=== PATIENT | female | born 1955 | race Caucasian/White ===

== ENCOUNTER 2017-02-02 11:29 | Day surgery (SDC) | payer OTHER ==
[2017-02-01 10:28] VITALS: BMI 20.5
[~2017-02-02 11:29] MED LIST: LACTATED RINGERS 1,000 ML IV SCH; LIDOCAINE 1% 20 ML VIAL (10MG/ML) FOR IV START INTRADERMA PRN
[2017-02-02 11:45] VITALS: TEMP 96.3
[2017-02-02] MEDS ORDERED: PROPOFOL 10 MG/ML 20 ML VIAL IV ONE (11:57)
[2017-02-02] MEDS ORDERED: MIDAZOLAM 2 MG/2 ML VIAL ONE (11:57)
[2017-02-02] MEDS ORDERED: LIDOCAINE 1% INJ 10MG/ML (20 ML MDV) ONE (11:57)
--- NOTE | 2017-02-02 12:31 | P.PCN ---
Date of Procedure: 02/02/17 Procedure(s) Performed: BRIEF HISTORY: Patient is a 61-year-old pleasant white female, scheduled for an elective colonoscopy as a part of evaluation of right lower quadrant abdominal pain of 2 months duration. Patient was admitted to the hospital with right lower quadrant abdominal pain of [address] of the abdomen done showed multiple lesions in the liver suggestive of metastasis and of fullness in the cecum suspicious for a mass. She was discharged home and is scheduled for an outpatient colonoscopy today. PROCEDURE PERFORMED: Attempted Colonoscopy with biopsy. PREOPERATIVE DIAGNOSIS: Right lower quadrant abdominal pain and abnormal CAT scan of the abdomen done 2 days ago showing multiple lesions in the liver suspicious for metastasis and lesion in the cecum. IV sedation per Anesthesia. PROCEDURE: After informed consent was obtained, the patient, was brought into the endoscopy unit. IV sedation was administered by Anesthesia under continuous monitoring. Digital rectal examination was normal. Initially the Olympus CF- 160 flexible video colonoscope was then inserted in the rectum, gradually advanced into the sigmoid colon and the scope could not be advanced any further. The scope was removed and a pediatric colonoscope was then introduced into the rectum and gently was able to advance the scope into the distal sigmoid and immediately there was a circumferential ulcerated mass with almost complete obstruction noted. The distal margin of the mass was located at 25 cm from the anal verge. Despite multiple times with abdominal pressure and changing patient's position, I was not able to advance the scope any further. At this time I decided to proceed with multiple biopsies were done from the mass. The rectum appeared normal. Retroflexion was performed in the rectum and no lesions were seen. The patient tolerated the procedure well. IMPRESSION: Near Obstructing circumferential distal sigmoid colon mass at 25 cm from the anal verge status post multiple biopsies Scope could not be advanced beyond the sigmoid colon mass. RECOMMENDATIONS: Findings of this examination were discussed with the patient as well as a family. At this time will await the biopsy results. Fine into this examination were already discussed with and the patient will be scheduled to see surgery on an outpatient basis.
[2017-02-02 12:43] VITALS: BP 116/72; PULSE 94; RESP 15
== END 2017-02-02 13:13 | disposition home or self-care (01) ==
LOC: ORWHC2ENDO 11:29
PROVIDERS: ATTEND Internal Medicine Gastroenterology
DX: C18.7 Malignant neoplasm of sigmoid colon (principal); K76.9 Liver disease, unspecified; Z79.891 Long term (current) use of opiate analgesic; Z88.6 Allergy status to analgesic agent
CPT/HCPCS: 88305; 45331; J2250; J2001; J2704; 45380

== ENCOUNTER 2017-03-01 15:26 | Emergency (ER) | payer OTHER ==
[2017-03-01 15:36] VITALS: RESP 18
--- NOTE | 2017-03-01 16:28 | ED ---
GI Bleed HPI - General Chief complaint: GI Bleed Stated complaint: GI Bleed Time Seen by Provider: 03/01/17 15:36 Source: patient, EMS, RN notes reviewed Mode of arrival: EMS Limitations: no limitations - History of Present Illness Initial comments: This is a 61-year-old female who is about one week post colostomy for metastatic colon cancer who states she had a rather large bowel movement of dark red blood this morning. She states she had rectal pressure in the past the blood. She denies any overt lightheadedness or dizziness she does feel tired she denies any fevers chills or sweats. No other symptoms report she states she has no abdominal pain. She states her colostomy appears be functioning with no change in the color of the stool in the colostomy bag. MD complaint: gross hematochezia - Related Data Home Medications Medication Instructions Recorded Confirmed Menthol [Biofreeze] 1 applic TOPICAL TID PRN 03/01/17 03/01/17 Omeprazole [PriLOSEC] 20 mg PO DAILY 03/01/17 03/01/17 Previous Rx's Medication Instructions Recorded PARoxetine HCL [Paxil] 10 mg PO DAILY #30 tab 02/16/17 Cefuroxime Axetil [Ceftin] 500 mg PO BID #20 tab 02/22/17 HYDROcodone/APAP 7.5-325MG [[place] 1 tab PO Q4H PRN #30 tab 02/22/17 7.5-325] Metoprolol Tartrate [Lopressor] 25 mg PO BID #60 tab 02/22/17 metroNIDAZOLE [Flagyl] 500 mg PO Q8HR #30 tab 02/22/17 Allergies Allergy/AdvReac Type Severity Reaction Status Date / Time aspirin Allergy Rash/Hives Verified 03/01/17 16:02 Review of Systems ROS Statement: Those systems with pertinent positive or pertinent negative responses have been documented in the HPI. ROS Other: All systems not noted in ROS Statement are negative. Past Medical History Past Medical History: Cancer, Osteoarthritis (OA), Skin Disorder Additional Past Medical History / Comment(s): tumor near colon, hemorrhoids, Colon cancer with mets to the bone, colostomy 02/25/17 History of Any Multi-Drug Resistant Organisms: None Reported Past Surgical History: Bowel Resection Additional Past Surgical History / Comment(s): COLONOSCOPY, colostomy 02/25/17 Past Anesthesia/Blood Transfusion Reactions: Family History of Problems w/ Anesthesia Additional Past Anesthesia/Blood Transfusion Reaction / Comment(s): mom had some kind of problem w/anesthesia-she wore a bracelet, not sure what it was-she thought was some kind of allergy Past Psychological History: No Psychological Hx Reported Smoking Status: Never smoker Past Alcohol Use History: None Reported Past Drug Use History: None Reported - Past Family History Father Family Medical History: Myocardial Infarction ([place]) Mother Family Medical History: Cancer Additional Family Medical History / Comment(s): BREAST CANCER General Exam - General Exam Comments Initial Comments: This is a well-developed well-nourished awake alert oriented x 3 female Limitations: no limitations General appearance: alert, in no apparent distress Head exam: Present: atraumatic, normocephalic, normal inspection Eye exam: Present: normal appearance, PERRL, EOMI. Absent: scleral icterus, conjunctival injection, periorbital swelling ENT exam: Present: normal exam, mucous membranes moist Neck exam: Present: normal inspection. Absent: tenderness, meningismus, lymphadenopathy Respiratory exam: Present: normal lung sounds bilaterally. Absent: respiratory distress, wheezes, rales, rhonchi, stridor Cardiovascular Exam: Present: regular rate, normal rhythm, normal heart sounds. Absent: systolic murmur, diastolic murmur, rubs, gallop, clicks GI/Abdominal exam: Present: soft, normal bowel sounds, other (The colostomy does appear to be functioning there is light brown stool). Absent: distended, tenderness, guarding, rebound, rigid Rectal exam: Present: normal inspection, other (No gross blood the test was heme positive) Extremities exam: Present: normal inspection, full ROM, normal capillary refill. Absent: tenderness, pedal edema, joint swelling, calf tenderness Back exam: Present: normal inspection Neurological exam: Present: alert, oriented X3, CN II-XII intact Psychiatric exam: Present: normal affect, normal mood Skin exam: Present: warm, dry, intact, normal color. Absent: rash Course Vital Signs 03/01/17 03/01/17 03/01/17 15:31 16:43 17:00 Temperature 97.7 F Pulse Rate 82 85 88 Respiratory 18 18 18 Rate Blood Pressure 129/62 120/55 124/60 O2 Sat by Pulse 98 99 100 Oximetry Medical Decision Making - Medical Decision Making I did discuss findings with the patient I also did discuss the findings with Dr. Missael Thompson. This is expected post operative. Patient be discharged her hemoglobin is much improved from the previous levels. She'll be discharged back to the long term. She is a follow-up as planned - Lab Data Result diagrams: 03/01/17 15:56 03/01/17 15:56 Lab Results 03/01/17 03/01/17 03/01/17 Range/Units 15:56 15:56 15:56 WBC 16.4 H (3.8-10.6) k/uL RBC 3.99 (3.80-5.40) m/uL Hgb 10.6 L (11.4-16.0) gm/dL Hct 35.6 (34.0-46.0) % MCV 89.2 (80.0-100.0) fL MCH 26.6 (25.0-35.0) pg MCHC 29.8 L (31.0-37.0) g/dL RDW 13.9 (11.5-15.5) % Plt Count 369 D (150-450) k/uL Neutrophils % 88 % Lymphocytes % 4 % Monocytes % 5 % Eosinophils % 1 % Basophils % 0 % Neutrophils # 14.5 H (1.3-7.7) k/uL Lymphocytes # 0.7 L (1.0-4.8) k/uL Monocytes # 0.8 (0-1.0) k/uL Eosinophils # 0.2 (0-0.7) k/uL Basophils # 0.0 (0-0.2) k/uL Hypochromasia Moderate Sodium 134 L (137-145) mmol/L Potassium 4.6 (3.5-5.1) mmol/L Chloride 101 (98-107) mmol/L Carbon Dioxide 26 (22-30) mmol/L Anion Gap 7 mmol/L BUN 7 (7-17) mg/dL Creatinine 0.44 L (0.52-1.04) mg/dL Est GFR (MDRD) Af Amer >60 (>60 ml/min/1.73 sqM) Est GFR (MDRD) Non-Af >60 (>60 ml/min/1.73 sqM) Glucose 96 (74-99) mg/dL Calcium 8.4 (8.4-10.2) mg/dL Magnesium 2.2 (1.6-2.3) mg/dL Total Bilirubin 0.7 (0.2-1.3) mg/dL AST 46 H (14-36) U/L ALT 45 (9-52) U/L Alkaline Phosphatase 467 H (38-126) U/L Total Protein 6.5 (6.3-8.2) g/dL Albumin 3.2 L (3.5-5.0) g/dL Amylase 36 (30-110) U/L Lipase 253 (23-300) U/L Stool Occult Blood (Negative) Blood Type O Positive Blood Type Recheck No Antibody Screen NEGATIVE Spec Expiration Date 03/04/2017 - 235503/01/17 Range/Units 16:28 WBC (3.8-10.6) k/uL RBC (3.80-5.40) m/uL Hgb (11.4-16.0) gm/dL Hct (34.0-46.0) % MCV (80.0-100.0) fL MCH (25.0-35.0) pg MCHC (31.0-37.0) g/dL RDW (11.5-15.5) % Plt Count (150-450) k/uL Neutrophils % % Lymphocytes % % Monocytes % % Eosinophils % % Basophils % % Neutrophils # (1.3-7.7) k/uL Lymphocytes # (1.0-4.8) k/uL Monocytes # (0-1.0) k/uL Eosinophils # (0-0.7) k/uL Basophils # (0-0.2) k/uL Hypochromasia Sodium (137-145) mmol/L Potassium (3.5-5.1) mmol/L Chloride (98-107) mmol/L Carbon Dioxide (22-30) mmol/L Anion Gap mmol/L BUN (7-17) mg/dL Creatinine (0.52-1.04) mg/dL Est GFR (MDRD) Af Amer (>60 ml/min/1.73 sqM) Est GFR (MDRD) Non-Af (>60 ml/min/1.73 sqM) Glucose (74-99) mg/dL Calcium (8.4-10.2) mg/dL Magnesium (1.6-2.3) mg/dL Total Bilirubin (0.2-1.3) mg/dL AST (14-36) U/L ALT (9-52) U/L Alkaline Phosphatase (38-126) U/L Total Protein (6.3-8.2) g/dL Albumin (3.5-5.0) g/dL Amylase (30-110) U/L Lipase (23-300) U/L Stool Occult Blood Positive H (Negative) Blood Type Blood Type Recheck Antibody Screen Spec Expiration Date - Radiology Data Radiology results: report reviewed (I did review the imaging and reports.), image reviewed Disposition Clinical Impression: Post-op bleeding, Metastatic colon cancer in female Disposition: HOME SELF-CARE Condition: Good Referrals: None,Stated [Primary Care Provider] - 1-2 days
[2017-03-01 16:36] LABS: Basophils % (A) 0 %; CH 27.5; CHCM 30.9; Eosinophils # (A) 0.2 k/uL (0-0.7); Eosinophils % (A) 1 %; HCT 35.6 % (34.0-46.0); HDW 3.12; HGB 10.6 gm/dL (11.4-16.0); Hypochromasia Moderate; Luc # (Auto) 0.15; Luc % (Auto) 1; Lymphocytes # (A) 0.7 k/uL (1.0-4.8); Lymphocytes % (A) 4 %; MCH 26.6 pg (25.0-35.0); MCHC 29.8 g/dL (31.0-37.0); MCV 89.2 fL (80.0-100.0); Mean Platelet Volume 7.6; Monocytes # (A) 0.8 k/uL (0-1.0); Monocytes % (A) 5 %; Neutrophils # (A) 14.5 k/uL (1.3-7.7); Neutrophils % (A) 88 %; RBC 3.99 m/uL (3.80-5.40); RDW 13.9 % (11.5-15.5); WBC 16.4 k/uL (3.8-10.6); WBC (Perox) 15.91
[2017-03-01 16:47] LABS: ALT 45 U/L (9-52); AST 46 U/L (14-36); Alkaline Phosphatase 467 U/L (38-126); Amylase 36 U/L (30-110); Anion Gap 7 mmol/L; Blood Urea Nitrogen 7 mg/dL (7-17); Calcium 8.4 mg/dL (8.4-10.2); Carbon Dioxide 26 mmol/L (22-30); Chloride 101 mmol/L (98-107); Glucose 96 mg/dL (74-99); Magnesium 2.2 mg/dL (1.6-2.3); Non-African American GFR(MDRD) >60 (>60 ml/min/1.73 sqM); Potassium 4.6 mmol/L (3.5-5.1); Sodium 134 mmol/L (137-145); Total Bilirubin 0.7 mg/dL (0.2-1.3); Total Protein 6.5 g/dL (6.3-8.2)
--- NOTE | 2017-03-01 17:06 | XR ---
EXAMINATION TYPE: XR abdomen acute w cxr DATE OF EXAM: 03/01/2017 COMPARISON: 02/19/2017 HISTORY: Colon carcinoma TECHNIQUE: Single view of the chest and 2 views of the abdomen are submitted. FINDINGS: Single view of the chest fails demonstrate evidence for acute pulmonary disease. Multiple pulmonary nodules are seen bilaterally consistent with metastatic disease. There is no evidence for pneumoperitoneum. The bowel gas pattern is unremarkable as there is air throughout nondilated small and large bowel. No sizeable air fluid levels.No mass effects are seen. Ostomy is noted in place. Suspect right-sided nephrolithiasis. Metastatic disease to the osseous structures of the pelvis. IMPRESSION: 1. Nonspecific nonobstructive bowel gas pattern. 2. Findings consistent with metastatic disease.
[2017-03-01 17:15] VITALS: BP 124/60
--- NOTE | 2017-03-01 18:22 | ED ---
Medical Decision Making - Lab Data Result diagrams: 03/01/17 15:56 03/01/17 15:56 Lab Results 03/01/17 03/01/17 03/01/17 Range/Units 15:56 15:56 15:56 WBC 16.4 H (3.8-10.6) k/uL RBC 3.99 (3.80-5.40) m/uL Hgb 10.6 L (11.4-16.0) gm/dL Hct 35.6 (34.0-46.0) % MCV 89.2 (80.0-100.0) fL MCH 26.6 (25.0-35.0) pg MCHC 29.8 L (31.0-37.0) g/dL RDW 13.9 (11.5-15.5) % Plt Count 369 D (150-450) k/uL Neutrophils % 88 % Lymphocytes % 4 % Monocytes % 5 % Eosinophils % 1 % Basophils % 0 % Neutrophils # 14.5 H (1.3-7.7) k/uL Lymphocytes # 0.7 L (1.0-4.8) k/uL Monocytes # 0.8 (0-1.0) k/uL Eosinophils # 0.2 (0-0.7) k/uL Basophils # 0.0 (0-0.2) k/uL Hypochromasia Moderate Sodium 134 L (137-145) mmol/L Potassium 4.6 (3.5-5.1) mmol/L Chloride 101 (98-107) mmol/L Carbon Dioxide 26 (22-30) mmol/L Anion Gap 7 mmol/L BUN 7 (7-17) mg/dL Creatinine 0.44 L (0.52-1.04) mg/dL Est GFR (MDRD) Af Amer >60 (>60 ml/min/1.73 sqM) Est GFR (MDRD) Non-Af >60 (>60 ml/min/1.73 sqM) Glucose 96 (74-99) mg/dL Calcium 8.4 (8.4-10.2) mg/dL Magnesium 2.2 (1.6-2.3) mg/dL Total Bilirubin 0.7 (0.2-1.3) mg/dL AST 46 H (14-36) U/L ALT 45 (9-52) U/L Alkaline Phosphatase 467 H (38-126) U/L Total Protein 6.5 (6.3-8.2) g/dL Albumin 3.2 L (3.5-5.0) g/dL Amylase 36 (30-110) U/L Lipase 253 (23-300) U/L Stool Occult Blood (Negative) Blood Type O Positive Blood Type Recheck No Antibody Screen NEGATIVE Spec Expiration Date 03/04/2017235503/01/17 Range/Units 16:28 WBC (3.8-10.6) k/uL RBC (3.80-5.40) m/uL Hgb (11.4-16.0) gm/dL Hct (34.0-46.0) % MCV (80.0-100.0) fL MCH (25.0-35.0) pg MCHC (31.0-37.0) g/dL RDW (11.5-15.5) % Plt Count (150-450) k/uL Neutrophils % % Lymphocytes % % Monocytes % % Eosinophils % % Basophils % % Neutrophils # (1.3-7.7) k/uL Lymphocytes # (1.0-4.8) k/uL Monocytes # (0-1.0) k/uL Eosinophils # (0-0.7) k/uL Basophils # (0-0.2) k/uL Hypochromasia Sodium (137-145) mmol/L Potassium (3.5-5.1) mmol/L Chloride (98-107) mmol/L Carbon Dioxide (22-30) mmol/L Anion Gap mmol/L BUN (7-17) mg/dL Creatinine (0.52-1.04) mg/dL Est GFR (MDRD) Af Amer (>60 ml/min/1.73 sqM) Est GFR (MDRD) Non-Af (>60 ml/min/1.73 sqM) Glucose (74-99) mg/dL Calcium (8.4-10.2) mg/dL Magnesium (1.6-2.3) mg/dL Total Bilirubin (0.2-1.3) mg/dL AST (14-36) U/L ALT (9-52) U/L Alkaline Phosphatase (38-126) U/L Total Protein (6.3-8.2) g/dL Albumin (3.5-5.0) g/dL Amylase (30-110) U/L Lipase (23-300) U/L Stool Occult Blood Positive H (Negative) Blood Type Blood Type Recheck Antibody Screen Spec Expiration Date Disposition Clinical Impression: Post-op bleeding, Metastatic colon cancer in female Disposition: HOME SELF-CARE Condition: Good Instructions: Gastrointestinal Bleeding (ED) Referrals: None,Stated [Primary Care Provider] - 1-2 days
[2017-03-01 18:28] VITALS: TEMP 98
[2017-03-01 19:01] VITALS: PULSE 87
== END 2017-03-01 19:01 | disposition home or self-care (01) ==
LOC: EC 15:26
DX: K91.840 Postprocedural hemorrhage of a digestive system organ or structure following a digestive system procedure (principal); C18.9 Malignant neoplasm of colon, unspecified; Z79.899 Other long term (current) drug therapy; Z88.6 Allergy status to analgesic agent
CPT/HCPCS: 36415; 74022; 80053; 82150; 82272; 83690; 83735; 85025; 86850; 86900; 86901; 99285

== ENCOUNTER → 2017-06-09 | Outpatient (CLI) | payer OTHER ==
[2017-06-09 13:01] LABS: Blood Urea Nitrogen 9 mg/dL (7-17)
--- NOTE | 2017-06-09 15:55 | CT ---
EXAMINATION TYPE: CT ChestAbdPelvis w con DATE OF EXAM: 06/09/2017 COMPARISON: CT abdomen pelvis 01/30/2017, chest x-ray 02/19/2017 HISTORY: Colon cancer. CT DLP: 1246 mGycm Automated exposure control for dose reduction was used. CONTRAST: CT scan of the chest, abdomen and pelvis is performed with Oral Contrast and with IV Contrast, patien t injected with 100 mL of Omnipaque 300. FINDINGS: LUNGS: Too numerous to count lung nodules are scattered throughout both lungs, largest on the left is approximately 14 mm and on the right approximately 9 mm in the upper lobes, multiple nodules are cav itary. No pleural or pericardial effusion. Port-A-Cath is present with the port in the right pectoral region, catheter is coursing into the level of the cavoatrial junction. MEDIASTINUM: There are no greater than 1 cm hilar or mediastinal lymph nodes. No pericardial effusi on is seen. AORTA: No significant abnormality is seen. LIVER/GB: Multiple low attenuation foci are scattered within the liver, confluent low-attenuation pre sent towards the dome, gallbladder is somewhat contracted PANCREAS: No significant abnormality is seen. SPLEEN: No significant abnormality is seen. ADRENALS: No significant abnormality is seen. KIDNEYS: No significant abnormality is seen. REPRODUCTIVE ORGANS: No gross abnormality seen. BOWEL: Colonic wall thickening is nonspecific. FREE AIR: No Free Air visible. ASCITES: None seen. There is diffuse anasarca, patient is cachectic RETROPERITONEAL ADENOPATHY: No retroperitoneal adenopathy is seen. LYMPH NODES: Lymph nodes noted in the groins are subcentimeter in size. URINARY BLADDER: Somewhat thickened wall as noted. PELVIC ADENOPATHY: None visualized. OSSEOUS STRUCTURES: Multiple lytic lesions are present, there are areas of sclerosis and hypertrophi c bone formation in the pelvis with probable acetabular fracture on the left, ramus fracture on the r ight without displacement, possible ramus fracture on the left and oncologic fractures in the sacrum, some sclerotic foci also noted within the visualized lumbar spine. There is an air collection adjacent to what may been a prior PEG tube site and anterior abdomen, the collection is superficial to the anterior abdominal wall and measures 2 cm in greatest dimension and shows some air density as well as some minimal soft tissue density, small subcutaneous abscess diffic ult to exclude. IMPRESSION: Liver and lung metastasis again noted. Findings at the PEG site as described. Extensive sclerotic appearance within the pelvis has progressed and likely due to periosteal reaction, findings suspicious for pathologic or posttreatment fractures in the pelvis. Liver lesions appears similar, n o prior chest CT for direct comparison of lung nodules.
== END | disposition home or self-care (01) ==
LOC: RADPROMAIN 12:17
PROVIDERS: ATTEND Internal Medicine Hematology & Oncology
DX: C78.7 Secondary malignant neoplasm of liver and intrahepatic bile duct (principal); C78.00 Secondary malignant neoplasm of unspecified lung; C18.7 Malignant neoplasm of sigmoid colon; C79.51 Secondary malignant neoplasm of bone; Z88.6 Allergy status to analgesic agent
CPT/HCPCS: 82565; 84520; 71260; 74177; Q9967; J1642

== ENCOUNTER → 2017-09-07 | Outpatient (CLI) | payer OTHER ==
[2017-09-07 11:37] LABS: Blood Urea Nitrogen 8 mg/dL (7-17)
--- NOTE | 2017-09-07 15:40 | NM ---
EXAMINATION TYPE: NM bone scan whole body DATE OF EXAM: 09/07/2017 COMPARISON: CT chest abdomen and pelvis September 07, 2017. Older CT January 30, 2017. Outside right knee x- ray August 08, 2017. HISTORY: Right knee pain for one year. Colon cancer diagnosed 7 months ago. Bone metastases to hip. Delayed whole-body scanning was performed following the injection of 24.9 mCi Tc 99m MDP. Images acq uired 3.5 hours post injection. FINDINGS: There is marked radiotracer uptake involving the sacrum extending into the right iliac bone with diff use involvement through bilateral superior and inferior pelvic rami, there is radiotracer uptake invo lving the left L3 vertebra. There is marked radiotracer uptake involving the proximal tibial metaphys is. All levels correspond to abnormal irregular expansile predominantly sclerotic bony lesions on CT and plain films. IMPRESSION: As above, findings would be presumed related to metastatic disease given history of primary colonic c ancer. Other neoplastic etiologies not excluded.
--- NOTE | 2017-09-08 11:03 | CT ---
EXAMINATION TYPE: CT ChestAbdPelvis w con DATE OF EXAM: 09/07/2017 COMPARISON: CT chest abdomen and pelvis June 09, 2017. Same day nuclear medicine bone scan. Older CT abdomen pelvis January 30, 2017. HISTORY: History of metastatic colon cancer progress study. Ongoing radiation treatment to left hip. Completed chemotherapy August 16, 2017. CT DLP: 1019 mGycm. Automated Exposure Control for Dose Reduction was Utilized. CONTRAST: CT scan of the thorax, abdomen and pelvis is performed with oral and with IV Contrast, patient inject ed with 100 mL of Isovue 300. FINDINGS: LUNGS: Multiple metastatic lesions throughout the bilateral lungs are redemonstrated most prominent i n the upper lungs. For reference lateral left apical metastatic lesion measures 13 mm on long axis ax ial image 8 and measured 11 mm on prior study axial image 11 fairly stable. Largest peripheral lesion right upper lobe measures 13 mm long axis axial image 27 similar measurements prior study axial imag e 28. No definitive new or changing lesions are present. 2 right basilar lesions for reference axial image 46 are stable. No pleural effusion or pneumothorax is noted. Tracheobronchial tree is patent. MEDIASTINUM: There are no greater than 1 cm hilar or mediastinal lymph nodes. No cardiomegaly or pe ricardial effusion is seen. There is mild to moderate stable right atrial dilatation. OTHER: There is stable right internal jugular Mediport catheter. LIVER/GB: Heterogeneous hypodense lesions throughout the liver most prominent in the right hepatic do me are redemonstrated. Anterior right hepatic dome lesion measures 4.8 cm long axis axial image 10 an d measures 3.5 cm on prior study increased in size now abutting more posterior lesion. Other lesions are stable or diminished in size. For reference 6 segment 7 lesion measures 2.5 cm long axis axial im age 50 and measure 2.6 cm prior study. For reference lateral lesion measures 4.4 cm long axis axial i mage 52 versus 5.2 cm prior study image 54. There is diminished in size inferior right lesion measuri ng 1.2 cm axial image 61 versus 1.6 cm on prior. Mild periportal edema remains present. No definitive new lesions are seen. No ductal dilatation is noted. There is overall improvement from older CT January 30, 2017 PANCREAS: No significant abnormality is seen. SPLEEN: Spleen size is stable and mildly enlarged at 13.8 cm long axis coronal image 38. ADRENALS: No significant abnormality is seen. KIDNEYS: Bladder is poorly distended and thus suboptimally evaluated. New moderate concentric wall th ickening is noted. A cystitis cannot be excluded, correlate clinically. BOWEL: There is contrast and debris-filled stomach. There is no suspicious small or large bowel dilat ation. There is persistent suspicious mass or neoplasm in the cecum near axial image 92 which is less prominent than the original study. There is new moderate wall thickening in the sigmoid colon. Canno t exclude colitis at this level. Clinical correlation advised. Anterior wall colostomy redemonstrated . GENITAL ORGANS: No gross abnormality seen. LYMPH NODES: No greater than 1cm abdominal or pelvic lymph nodes are appreciated. OSSEOUS STRUCTURES: There is persistent sclerotic focus involving left L3 vertebra anteriorly. There is persistent expansile mixed predominantly sclerotic osseous lesion presumed metastatic involving bi lateral superior and inferior pelvic rami extending into left acetabulum. Similar lesion involves sunil ority of sacrum sparing S1 level extending into right iliac bone. No significant change from most rec ent CT. No definitive new lesions are seen. Findings correlate with same day bone scan. OTHER: No significant additional abnormality is seen. IMPRESSION: 1. Stable osseous and pulmonary metastatic disease. Overall mixed response in liver from most recent CT. No new suspicious masses or adenopathy noted. Possible sigmoid colitis, correlate clinically. Possible new cystitis, correlate clinically. Adverse reaction to chemotherapy on differential.
== END | disposition home or self-care (01) ==
LOC: RADNMMAIN 10:55
PROVIDERS: ATTEND Internal Medicine Hematology & Oncology
DX: C79.51 Secondary malignant neoplasm of bone (principal); C78.01 Secondary malignant neoplasm of right lung; C78.02 Secondary malignant neoplasm of left lung; C18.7 Malignant neoplasm of sigmoid colon; Z88.6 Allergy status to analgesic agent
CPT/HCPCS: 82565; 84520; 71260; 74177; 78306; A9503; J1642; Q9967

== ENCOUNTER → 2017-11-08 | Outpatient (CLI) | payer OTHER ==
[2017-11-08 12:10] LABS: Blood Urea Nitrogen 13 mg/dL (7-17)
--- NOTE | 2017-11-08 14:11 | CT ---
EXAMINATION TYPE: CT ChestAbdPelvis w con DATE OF EXAM: 11/08/2017 COMPARISON: 09/07/2017 and 06/09/2017 HISTORY: 62-year-old female Colon CA with mets TECHNIQUE: Contiguous axial scanning of the chest, abdomen, and pelvis performed with IV Contrast, pa tient injected with 100 mL of Isovue 300. Delayed images through the kidneys were obtained. Coronal/s agittal reconstructions performed. CT DLP: 484.8 mGycm Automated exposure control for dose reduction was used. FINDINGS: Chest: Right anterior chest wall injection port with catheter tip at the lower SVC. Heart normal size without pericardial effusion. Aorta normal caliber with conventional arch vessel branching anatomy. No thoracic lymphadenopathy by CT size criteria. Innumerable bilateral pulmonary nodules are redemonstrated. Some again show cavitary changes. Many ar e stable. Others show increasing soft tissue bulk, for example, medial left upper lobe axial image 10 measuring 1.1 cm versus 8 mm, previously and in the left apex measuring 1.5 x 1.4 cm versus 1.3 x 0. 9 cm, previously. 8 mm superior segment left lower lobe versus 6 mm, previously. Numerous tiny 5 mm and smaller new pulmonary nodules are now present. No consolidation or pleural effusion. ABDOMEN: Multiple hepatic metastases are redemonstrated and show increasing size, for example, right liver lob e axial image 61 measures 2.7 cm versus 1.2 cm, previously. Right hepatic dome measures 5.7 cm versus 4.1 cm, previously. Peripheral right hepatic dome measures 5.2 cm versus 4.7 cm, previously. Posteri or right hepatic dome measures 4.6 cm versus 2.5 cm, previously. Segment 6 right liver lobe measures 3.2 cm versus 3.1 cm, previously. Portal venous system is patent. No biliary ductal dilatation. Gallbladder, adrenal glands, left kidney appear within normal limits. Spleen mildly enlarged at 14.4 cm, coronal image 44. Pancreas is atrophic. Subcentimeter hypodensity upper to mid right kidney too small for accurate CT catheterization, probab le cyst. No dilated small bowel, free fluid, or free air. There is a diverting mid-transverse colostomy. Circumferential soft tissue thickening in the region o f the lower ascending colon appears increased, coronal image 28 and axial image 90. No abnormal fluid collection the pelvis. No obvious pelvic lymphadenopathy. Mild diffuse anasarca-type change. No obvious intra-abdominal lymphadenopathy though assessment limit ed due to anasarca type changes. Pelvis: Mild circumferential bladder wall thickening has improved from prior. No abnormal fluid collection th e pelvis or pelvic lymphadenopathy is identified. Uterus is present. Pelvic phleboliths. Left ovary i s visualized. Bones: Extensive abnormal sclerosis and hypertrophic changes of the pelvis and sacrum. There is persistent l ytic destruction of the posterior right iliac bone with increasing extraosseous partially ossified le carmen here now measuring 5.7 cm wide versus 5.4 cm on 09/07/2017 and 4.9 cm on 06/09/2017. Sclerotic les ion within L3 vertebral body redemonstrated. There is new superior endplate compression injury here s uggesting pathologic endplate fracture. IMPRESSION: 1. DISEASE PROGRESSION. While multiple pulmonary nodules are unchanged, many show increasing soft tis frederick bulk and there are many new 5 mm and smaller nodules. 2. Hepatic metastases increasing in size now measuring up to 5.7 cm versus 4.1 cm, previously. 3. Increasing abnormal soft tissue, possible neoplasm, involving the lower ascending colon. 4. Suspect combination of metastatic disease and posttreatment changes involving the sacrum and pelvi s. Mixed lytic/sclerotic disease within the posterior right iliac bone with associated extraosseous s oft tissue component is gradually increasing in size now measuring 5.7 cm wide versus 5.4 cm on 2017 and 4.9 cm on 06/09/2017. 5. L3 sclerotic metastasis is stable but there is new mild pathologic fracture of the superior endpla te.
--- NOTE | 2017-11-08 16:05 | NM ---
EXAMINATION TYPE: NM bone scan whole body DATE OF EXAM: 11/08/2017 COMPARISON: 09/07/2017 HISTORY: 62-year-old female low back and bilateral hip pain for 2 weeks, colon cancer with a liver me tastases. Technique: Delayed whole-body scanning was performed following the injection of 22.0 mCi Tc 99m MDP. Images acquired 3 hours post injection. Anterior and posterior projection whole body imaging was per formed. FINDINGS: Redemonstrated intense FDG uptake involving the sacrum and extending into the posterior right hemipel vis. Additional heterogeneous areas of uptake are present throughout the acetabulum, ischium, and pub ic bones. Abnormal activity at L3 is redemonstrated as is abnormal activity in the proximal right tib ia. IMPRESSION: Redemonstrated abnormal activity throughout the pelvis especially the sacrum extending towards the ri ght posterior aspect of the iliac bone. Additional abnormal activity within L3 vertebral body and the proximal right tibia. Continued findings suggestive of osseous metastatic disease limited to the par ticular sites seen previously.
== END | disposition home or self-care (01) ==
LOC: RADPROMAIN 11:04
PROVIDERS: ATTEND Internal Medicine Hematology & Oncology
DX: C78.7 Secondary malignant neoplasm of liver and intrahepatic bile duct (principal); R91.8 Other nonspecific abnormal finding of lung field; R93.7 Abnormal findings on diagnostic imaging of other parts of musculoskeletal system; C79.51 Secondary malignant neoplasm of bone; C18.7 Malignant neoplasm of sigmoid colon; Z88.6 Allergy status to analgesic agent
CPT/HCPCS: 82565; 84520; 71260; 74177; 78306; A9503; J1642; Q9967

== ENCOUNTER → 2018-02-22 | Outpatient (CLI) | payer OTHER ==
[2018-02-22 11:13] LABS: Blood Urea Nitrogen 21 mg/dL (7-17)
--- NOTE | 2018-02-22 13:20 | CT ---
EXAMINATION TYPE: CT ChestAbdPelvis w con DATE OF EXAM: 02/22/2018 COMPARISON: Prior CT 11/08/2017 HISTORY: Carcinoma of sigmoid colon CT DLP: 493.4 mGycm Automated exposure control for dose reduction was used. CONTRAST: CT scan of the chest, abdomen and pelvis is performed with Oral Contrast and with IV Contrast, patien t injected with 100 mL of Isovue 300. FINDINGS: LUNGS: There are too numerous to count lung nodules present, posterior costophrenic sulcus on the rig ht shows a subcentimeter nodule measuring approximately 4 to 5 mm which is increased slightly from ap proximately 3 mm on prior additional right lower lobe nodule on image 46 measures 5 mm and measured o nly approximately 3 to 4 mm on prior. Index lesion in the superior segment of the left lower lobe isabel sures proximally 10 mm as compared to prior at 8.4 mm axial image 22. MEDIASTINUM: There are no greater than 1 cm hilar or mediastinal lymph nodes. No pericardial effusi on is seen. AORTA: No significant abnormality is seen. OTHER: No additional significant abnormality is seen. LIVER/GB: Liver lesions level of the dome has become somewhat more confluent in the interval PANCREAS: No significant abnormality is seen. SPLEEN: Spleen is enlarged.. ADRENALS: No significant abnormality is seen. KIDNEYS: No significant abnormality is seen. REPRODUCTIVE ORGANS: No gross abnormality seen. BOWEL: Persistent abnormal thickening in the ascending colon region.. FREE AIR: No Free Air visible. ASCITES: None seen. RETROPERITONEAL ADENOPATHY: No retroperitoneal adenopathy is seen. LYMPH NODES: No greater than 1 cm abdominal or pelvic lymph nodes are appreciated. URINARY BLADDER: No significant abnormality is seen. PELVIC ADENOPATHY: None visualized. OSSEOUS STRUCTURES: Lytic lesion in the right ilium, sclerotic density in the sacrum, left ilium as well as bilateral fascial masses, rami masses again noted. L5 vertebral body anteriorly shows some pr ogression in sclerotic density, at L3 there has been interval development of fracture, sclerosis. IMPRESSION: Findings suggest some progression in metastatic disease.
== END | disposition home or self-care (01) ==
LOC: RADPROMAIN 10:23
PROVIDERS: ATTEND Internal Medicine Hematology & Oncology
DX: C18.7 Malignant neoplasm of sigmoid colon (principal)
CPT/HCPCS: 82565; 84520; 71260; 74177; 36415; Q9967

== ENCOUNTER → 2018-03-06 | Outpatient (CLI) | payer SELFPAY ==
--- NOTE | 2018-03-06 15:33 | NM ---
EXAMINATION TYPE: NM bone scan whole body DATE OF EXAM: 03/06/2018 COMPARISON: 11/08/2017 HISTORY: Carcinoma sigmoid colon Delayed whole-body scanning was performed following the injection of 23.5 mCi Tc 99m MDP. Images wer e acquired 3 hours post injection. FINDINGS: Increased radiotracer accumulation is within the sacrum extending into the right iliac wing. Addition al foci of radiotracer accumulation within the pelvis. There is focal radiotracer accumulation in the L5 and L3 regions. The findings are suspicious for metastatic disease. The area within the L5 verteb ral level appears to been interval finding. There is increased radiotracer accumulation within the proximal metaphyseal right tibia. Metastatic d isease should be considered. Mild uptake is in the region of the right ankle which could be degenerative in nature. IMPRESSION: 1. Abnormal uptake in the region of the sacrum and posterior lateral right iliac wing as well as win tional scattered areas within the pelvis bilaterally. Findings are suspicious for metastatic disease. 2. Abnormal uptake within the L3 and L5 regions of the lumbar spine suspicious for metastatic disease . The L5 uptake appears to be new from comparison. 3. Abnormal uptake within the proximal right tibia suspicious for metastatic disease.
== END | disposition home or self-care (01) ==
LOC: RADNMMAIN 10:27
PROVIDERS: ATTEND Internal Medicine Hematology & Oncology
DX: R94.8 Abnormal results of function studies of other organs and systems (principal); C18.7 Malignant neoplasm of sigmoid colon; Z88.6 Allergy status to analgesic agent
CPT/HCPCS: 78306; A9503